=== PATIENT | male | born 1960 | race Caucasian/White ===

== ENCOUNTER 2024-10-18 18:04 | Emergency (ER) | payer OTHER ==
[2024-10-18 18:39] VITALS: BP 129/84; PULSE 77; RESP 16; TEMP 98.8; BMI 21.1
== END 2024-10-18 20:53 | disposition home or self-care (01) ==
LOC: FER 18:04
DX: S76.112A Strain of left quadriceps muscle, fascia and tendon, initial encounter (principal); M79.89 Other specified soft tissue disorders; W18.30XA Fall on same level, unspecified, initial encounter
CPT/HCPCS: 73552-TC-LT-FY; 76882-TC-LT; 99283-25

== ENCOUNTER 2024-10-22 08:28 | Day surgery (SDC) | payer OTHER ==
[2024-10-21 11:34] VITALS: BMI 21.1
[2024-10-22] MEDS ORDERED: MIDAZOLAM HCL 2 MG/2 ML SINGLE DOSE VIAL ONE (10:46)
[2024-10-22] MEDS ORDERED: ROPIVACAINE HCL/PF 100 MG/20 ML VIAL ONE (10:46)
[2024-10-22] MEDS ORDERED: FENTANYL CITRATE/PF 50 MCG/ML VIAL ONE ×2 (10:46→13:35)
[2024-10-22] MEDS ORDERED: SUCCINYLCHOLINE CHLORIDE 200 MG/10 ML SYRINGE ONE (11:10)
[2024-10-22] MEDS ORDERED: HYDROmorphone HCL/PF 1 MG/ML VIAL ONE (11:10)
[2024-10-22] MEDS ORDERED: PROPOFOL 20 ML ONE ×2 (11:10→11:14)
[2024-10-22] MEDS ORDERED: ePHEDrine SULFATE 50 MG/1 ML AMPULE ONE (11:19)
[2024-10-22] MEDS ORDERED: EPINEPHrine 1:1,000 1,000 MCG/ML ML ONE (12:13)
[2024-10-22] MEDS ORDERED: oxyCODONE HCL 5 MG TABLET PO PRN ×2 (12:44)
[2024-10-22] MEDS ORDERED: ONDANSETRON 4 MG/2 ML VIAL IVPUSH PRN (12:44)
[2024-10-22] MEDS ORDERED: LACTATED RINGERS SOLUTION 1,000 ML IV SCH (12:45)
[2024-10-22 15:28] VITALS: PULSE 68; RESP 16; TEMP 97.5
[2024-10-22 15:41] VITALS: BP 124/67
== END 2024-10-22 15:55 | disposition home or self-care (01) ==
LOC: FASU 08:28
PROVIDERS: ATTEND Orthopaedic Surgery Sports Medicine
PROC: 0LQM0ZZ Repair Left Upper Leg Tendon, Open Approach (ICD-10-PCS; principal; 2024-10-22 11:29)
DX: S76.112A Strain of left quadriceps muscle, fascia and tendon, initial encounter (principal); X58.XXXA Exposure to other specified factors, initial encounter; Y93.9 Activity, unspecified; Y92.9 Unspecified place or not applicable
CPT/HCPCS: 94760; C1713